=== PATIENT | female | born 1970 | race Caucasian/White ===

== ENCOUNTER 2021-03-29 11:26 | Emergency (ER) | payer OTHER ==
[2021-03-29 11:53] LABS: HEMOGLOBIN 13.4 gm/dl (12.3-15.3); RED BLOOD COUNT 4.11 M/UL (4.00-5.10); WHITE BLOOD COUNT 4.8 K/UL (4.5-11.0)
[2021-03-29 12:21] LABS: BUN/CREATININE RATIO 16 (0-10)
[2021-03-29] MEDS ORDERED: ASPIRIN EC81 MG PO (15:20)
== END 2021-03-29 15:40 | disposition home or self-care (01) ==
LOC: ER1 11:26
PROVIDERS: Family Medicine
DX: R07.89 Other chest pain (principal); I10 Essential (primary) hypertension
CPT/HCPCS: 71045; 80053; 82550; 82553; 83874; 84484; 85025; 85379; 93005; 99285

== ENCOUNTER → 2021-04-20 | Outpatient (CLI) | payer OTHER ==
[~2021-04-20] MED LIST: ASPIRIN EC81 MG PO
== END ==
LOC: ECHO 11:46 → NM 13:00
DX: R07.9 Chest pain, unspecified (principal); I10 Essential (primary) hypertension
CPT/HCPCS: ECHO; 78452; 93306; A9502

== ENCOUNTER → 2021-04-28 | Outpatient (CLI) | payer OTHER | LOC: KOH-I 13:15 | DX: M54.2 Cervicalgia (principal); M47.812 Spondylosis without myelopathy or radiculopathy, cervical region; M48.02 Spinal stenosis, cervical region; M25.78 Osteophyte, vertebrae | CPT/HCPCS: 72050 ==

== ENCOUNTER → 2021-05-09 | Outpatient (CLI) | payer OTHER | LOC: KOH-I 10:23 | DX: M54.12 Radiculopathy, cervical region (principal); M54.2 Cervicalgia; R92.2 Inconclusive mammogram; M79.10 Myalgia, unspecified site; R29.898 Other symptoms and signs involving the musculoskeletal system; M47.812 Spondylosis without myelopathy or radiculopathy, cervical region | CPT/HCPCS: 72141 ==